=== PATIENT | female | born 1960 | race Caucasian/White ===

== ENCOUNTER → 2016-09-14 | Outpatient (CLI) | payer BC ==
--- NOTE | 2016-09-14 16:25 | RAD ---
Examination: MRI of the right ankle without contrast HISTORY History of medial ankle pain, swelling for 2 months, history of ankle fracture. COMPARISON None available. TECHNIQUE Multiplanar multisequence MR imaging of the right ankle was performed without contrast Findings ; The attachment of the Achilles tendon to the calcaneus grossly appears intact. The attachment of the plantar fascia to the inferior aspect of the calcaneus grossly appears intact. The alignment of the tarsal bones grossly appears unremarkable. The visualized Lisfranc ligament appears intact. The anterior tibiofibular ligament, posterior tibiofibular ligament, anterior talofibular ligament, posterior talofibular ligament are intact. The visualized deep fibers of the deltoid ligament appears intact. There is mild increased signal identified in the anterior aspect of the superficial fibers of the deltoid ligament. The tibial spring component of the the deltoid ligament is intact. There is small amount of fluid identified surrounding the posterior tibialis tendon, flexor digitorum tendons likely mild tenosynovitis mild nonspecific a soft tissue edema identified just anterior to the medial malleolus. The peroneal tendons grossly appears intact. The anterior extensor compartment tendons grossly appears intact. Fat is present within the rotator interval per sinus tarsi. Small ankle joint effusion is identified. IMPRESSION Mild increased signal identified in the deltoid ligament region anteriorly likely sprain or subtle partial tearing of the superficial fibers of the deltoid ligament. There is a small amount of fluid identified surrounding the posterior tibialis tendon and the flexor digitorum tendon likely mild tenosynovitis. Electronically signed by: Nico Elizondo (Sep 14, 2016 16:23:19)
== END | disposition home or self-care (01) ==
LOC: MRI 14:38
PROVIDERS: ATTEND Nurse Practitioner Gerontology
DX: M25.571 Pain in right ankle and joints of right foot (principal); M25.471 Effusion, right ankle
CPT/HCPCS: 73721

== ENCOUNTER 2017-01-22 16:06 | Inpatient (IN) | payer BC ==
[~2017-01-22] VITALS: Ht 167.6 cm; Wt 97.5 kg
[2017-01-22 16:51] VITALS: BP 130/73
[2017-01-22] MEDS ORDERED: OMEP40CA5 PO (16:55)
[2017-01-22] MEDS ORDERED: PSEU120T9 PO (16:55)
[2017-01-22] MEDS ORDERED: LORA1TAB47 PO (16:55)
[2017-01-22] MEDS ORDERED: MONT10TA9 PO (16:55)
[2017-01-22] MEDS ORDERED: ZOLPIDEM 5 MG TABLET. PO PRN (17:15)
[2017-01-22] MEDS ORDERED: fentaNYL PF VIAL 100 MCG/2 ML VIAL IV PRN (17:15)
[2017-01-22 19:00] VITALS: BP 120/73
[2017-01-22 19:11] LABS: BASO % 0 % (0-3); EOS % 5 % (0-3); HEMATOCRIT 36.6 % (36.0-47.0); HEMOGLOBIN 12.2 g/dL (12.0-15.5); LYMPH # 2.6 x10^3/uL (1.0-4.8); LYMPH % 32 % (24-48); MEAN CORPUSCULAR HEMOGLOBIN 30 pg (25-35); MEAN CORPUSCULAR HGB CONC 33 g/dL (31-37); MEAN CORPUSCULAR VOLUME 89 fL (79-100); MONO % 8 % (0-9); NEUT % 55 % (31-73); PLATELET COUNT 308 x10^3/uL (140-400); RED CELL DISTRIBUTION WIDTH 14.3 % (11.5-14.5); WHITE BLOOD COUNT 8.1 x10^3/uL (4.0-11.0)
[2017-01-22 19:22] LABS: CREATININE 0.8 mg/dL (0.6-1.0); GFR 74.2
--- NOTE | 2017-01-22 19:31 | EKG ---
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
[2017-01-22] MEDS ORDERED: IOHEXOL 300 MG/ML 75 ML VIAL IV ONE (19:45)
--- NOTE | 2017-01-22 21:52 | RAD ---
CTA OF THE CHEST WITH AND WITHOUT CONTRAST Clinical indications: Shortness of air. Replacement last month. Technique: Noncontrast axial localizer was performed. After IV infusion of 75 cc of Omnipaque 300, helical CT scanning of the chest was performed using the CT pulmonary embolism protocol. A coronal MIP reconstruction was generated. PQRS compliance Statement One or more of the following individualized dose reduction techniques were utilized for this study: 1. Automated exposure control 2. Adjustment of the mA and/or kV according to patient size 3. Use of iterative reconstruction technique Comparison: None available. Findings: No pulmonary embolism is evident. No focal aneurysmal dilatation or dissection of the thoracic aorta is seen. The heart size is normal and no pericardial effusion is seen. No enlarged thoracic lymphadenopathy is seen. No lung infiltrate or lung mass or pleural effusion or pneumothorax is seen. The proximal bronchial tree is patent. No adrenal mass is evident. No osteolytic process is seen. IMPRESSION: No pulmonary embolism. No acute lung infiltrate. Electronically signed by: Johnnie Mendoza MD (01/22/2017 9:48 PM) [facility]
[2017-01-22] MEDS: PSEUDOEPHEDRINE ER 120 MG TABLET.ER. PO SCH (21:54)
[2017-01-22 23:00] VITALS: BP 120/69
[2017-01-23 03:00] VITALS: BP 127/83
[2017-01-23 07:00] VITALS: BP 118/73
[2017-01-23] MEDS ORDERED: PANTOPRAZOLE 40 MG TABLET.DR. PO SCH (07:30)
[2017-01-23] MEDS: PANTOPRAZOLE 40 MG TABLET.DR. PO SCH (07:46)
[2017-01-23] MEDS: ASPIRIN CHEWABLE 81 MG TABLET. PO SCH (07:46)
--- NOTE | 2017-01-23 08:58 | RAD ---
INDICATION: Abdominal pain. Shortness of air. COMPARISON: None. TECHNIQUE: Grayscale and color ultrasound images obtained through the abdomen. FINDINGS: Aorta/IVC: Partially visualized without gross aneurysm. Pancreas: Visualized portions unremarkable. Liver: Echotexture within normal limits. Gallbladder: No definite stones or wall thickening. Common Bile Duct: Not dilated. Right Kidney: No hydronephrosis. Left Kidney: No hydronephrosis. Spleen: Unremarkable. IMPRESSION: No bile duct dilation or hydronephrosis.
[2017-01-23] MEDS ORDERED: ASA/APAP/CAFFEINE 250/250/65MG TABLET. PO PRN (10:00)
[2017-01-23] MEDS ORDERED: ACETAMINOPHEN 325 MG TABLET. PO PRN ×2 (10:00)
--- NOTE | 2017-01-23 10:08 | PDOC1 ---
History and Physical Date of Admission Date of Admission 01/22/17 Identification/Chief Complaint Chief Complaint Chest pain and shortness of breath Problems: Source Source: Chart review, Patient History of Present Illness History of Present Illness Patient presented to the office complaining of chest pain for the last 2 days along with the increasing shortness of breath patient had a right knee replacement about a month and a half ago she has been under a lot of stress and most recently she had felt very short of breath and have been having chest pain she has been evaluated in the past for similar and it was GI pain and epigastric area and the abdominal ultrasound was ordered she was also started on PPI in the office she was given GI cocktail with no improvement in her pain which was in the left upper quadrant area she was given breathing treatment and she did not feel that that helped her blood thinner her shortness of breath her oximetry was 100% her chest x-ray was negative but due to the persistent shortness of breasts subjective feeling of shortness of breath and chest pain she was admitted for further evaluation and treatment Past Medical History Cardiovascular: HTN GI: GERD, Gastritis Rheumatologic: Other (osteoarthritis and back pain) Family History Family History: No Significant Social History ALCOHOL: rare Drugs: None Current Medications Current Medications Current Medications Medications (Trade) Dose Ordered Sig/Angella Start Time Stop Time Status Last Admin Dose Admin Acetaminophen (Tylenol) 325 mg PRN Q6HRS PRN 01/23/17 10:00 Acetaminophen/ Aspirin/Caffeine (Excedrin Migraine) 1 tab PRN Q6HRS PRN 01/23/17 10:00 Aspirin (Children'S Aspirin) 81 mg DAILYWBKFT 01/23/17 08:00 01/23/17 07:46 81 MG Enoxaparin Sodium (Lovenox 100mg Syringe) 100 mg 1X ONCE 01/22/17 17:15 01/22/17 17:31 DC 01/22/17 17:45 100 MG Fentanyl Citrate (Fentanyl 2ml Vial) 50 mcg PRN Q4HRS PRN 01/22/17 17:15 Iohexol (Omnipaque 300 Mg/ml) 75 ml 1X ONCE 01/22/17 19:45 01/22/17 19:46 DC 01/22/17 19:45 75 ML Montelukast Sodium (Singulair) 10 mg DAILYBFRLUN 01/23/17 11:30 Pantoprazole Sodium (Protonix) 40 mg DAILYAC 01/23/17 07:30 01/23/17 07:30 DC Pseudoephedrine HCl (Sudafed 12-Hour) 120 mg HS 01/22/17 21:00 01/22/17 21:54 120 MG Zolpidem Tartrate (Ambien) 5 mg PRN QHS PRN 01/22/17 17:15 Allergies Allergies Allergies Coded Allergies Type Severity Reaction Last Updated Verified morphine Allergy Mild Nausea 01/22/17 Yes oxycodone Allergy Mild Nausea 01/22/17 Yes ROS Review of System CONSTITUTIONAL: No fever or chills EYES: No recent changes SKIN: No rash or itching CARDIOVASCULAR: See history of present illness RESPIRATORY: See history of present illness GASTROINTESTINAL: No nausea, vomiting or abdominal pain NEUROLOGICAL: No headaches or weakness ENDOCRINE: No cold or heat intolerance GENITOURINARY: No urgency or frequency of urination MUSCULOSKELETAL: No back pain or joint pain LYMPHATICS: No enlarged lymph nodes PSYCHIATRIC: No anxiety or depression Physical Exam Physical Exam GEN.: No apparent distress. Alert and oriented. HEENT: Head is normocephalic, atraumatic NECK: Supple. LUNGS: Clear to auscultation. HEART: RRR, S1, S2 present. Peripheral pulses intact ABDOMEN: Soft, nontender. Positive bowel sounds. EXTREMITIES: Without any cyanosis. NEUROLOGIC: Normal speech, normal tone PSYCHIATRIC: Normal affect, normal mood. SKIN: No ulcerations Vitals Vitals Vital Signs Date Time Temp Pulse Resp B/P (MAP) Pulse Ox O2 Delivery O2 Flow Rate FiO2 01/23/17 07:00 98.2 92 18 118/73 (88) 97 Room Air 98.2 Labs Labs Laboratory Tests Test 01/22/17 18:55 01/23/17 04:05 White Blood Count 8.1 x10^3/uL (4.0-11.0) Red Blood Count 4.10 x10^6/uL (3.50-5.40) Hemoglobin 12.2 g/dL (12.0-15.5) Hematocrit 36.6 % (36.0-47.0) Mean Corpuscular Volume 89 fL (79-100) Mean Corpuscular Hemoglobin 30 pg (25-35) Mean Corpuscular Hemoglobin Concent 33 g/dL (31-37) Red Cell Distribution Width 14.3 % (11.5-14.5) Platelet Count 308 x10^3/uL (140-400) Neutrophils (%) (Auto) 55 % (31-73) Lymphocytes (%) (Auto) 32 % (24-48) Monocytes (%) (Auto) 8 % (0-9) Eosinophils (%) (Auto) 5 % (0-3) Basophils (%) (Auto) 0 % (0-3) Neutrophils # (Auto) 4.4 x10^3uL (1.8-7.7) Lymphocytes # (Auto) 2.6 x10^3/uL (1.0-4.8) Monocytes # (Auto) 0.7 x10^3/uL (0.0-1.1) Eosinophils # (Auto) 0.4 x10^3/uL (0.0-0.7) Basophils # (Auto) 0.0 x10^3/uL (0.0-0.2) D-Dimer (Betty) 1.89 ug/mlFEU (0.00-0.50) Creatinine 0.8 mg/dL (0.6-1.0) Estimated GFR (Cockcroft-Gault) 74.2 Thyroid Stimulating Hormone (TSH) 8.515 uIU/mL (0.358-3.74) Troponin I Quantitative < 0.017 ng/mL (0.000-0.055) Laboratory Tests Test 01/22/17 18:55 01/23/17 04:05 White Blood Count 8.1 x10^3/uL (4.0-11.0) Red Blood Count 4.10 x10^6/uL (3.50-5.40) Hemoglobin 12.2 g/dL (12.0-15.5) Hematocrit 36.6 % (36.0-47.0) Mean Corpuscular Volume 89 fL (79-100) Mean Corpuscular Hemoglobin 30 pg (25-35) Mean Corpuscular Hemoglobin Concent 33 g/dL (31-37) Red Cell Distribution Width 14.3 % (11.5-14.5) Platelet Count 308 x10^3/uL (140-400) Neutrophils (%) (Auto) 55 % (31-73) Lymphocytes (%) (Auto) 32 % (24-48) Monocytes (%) (Auto) 8 % (0-9) Eosinophils (%) (Auto) 5 % (0-3) Basophils (%) (Auto) 0 % (0-3) Neutrophils # (Auto) 4.4 x10^3uL (1.8-7.7) Lymphocytes # (Auto) 2.6 x10^3/uL (1.0-4.8) Monocytes # (Auto) 0.7 x10^3/uL (0.0-1.1) Eosinophils # (Auto) 0.4 x10^3/uL (0.0-0.7) Basophils # (Auto) 0.0 x10^3/uL (0.0-0.2) D-Dimer (Betty) 1.89 ug/mlFEU (0.00-0.50) Creatinine 0.8 mg/dL (0.6-1.0) Estimated GFR (Cockcroft-Gault) 74.2 Thyroid Stimulating Hormone (TSH) 8.515 uIU/mL (0.358-3.74) Troponin I Quantitative < 0.017 ng/mL (0.000-0.055) VTE Prophylaxis Ordered VTE Prophylaxis Devices: Yes VTE Pharmacological Prophylaxi: No Assessment/Plan Assessment/Plan 1- chest pain is atypical but persistent patient is admitted serial cardiac enzymes will obtain a CT of the chest to rule out pulmonary embolus 2-gastritis and gastroesophageal reflux disease LAZARUS MEJIA MD Jan 23, 2017 10:08
[2017-01-23 10:18] LABS: BILIRUBIN,URINE NEGATIVE (NEG); GLUCOSE,URINE NEGATIVE (NEG); NITRITE,URINE NEGATIVE (NEG); PROTEIN,URINE NEGATIVE (NEG-TRACE); UROBILINOGEN,URINE 0.2 mg/dL (0.2 mg/dL)
[2017-01-23 10:39] LABS: BACTERIA,URINE 0 /HPF (0-FEW); RBC,URINE 0 /HPF (0-2); SQUAMOUS EPITHELIAL CELL,UR FEW /LPF
--- NOTE | 2017-01-23 10:56 | PDOC2 ---
CARDIAC CONSULT DATE OF CONSULT Date of Consult DATE: 01/23/17 TIME: 10:53 REASON FOR CONSULT Reason for Consult: Chest Pain REFERRING PHYSICIAN Referring Physician: Dr. Helton SOURCE Source: Chart review, Patient HISTORY OF PRESENT ILLNESS HISTORY OF PRESENT ILLNESS This is a 56 yo female who presented as a direct admit secondary to LUQ pressure. "Can't get deep breath" due to the pressure. Has been occurring intermittent over the last 30 years. Seems to have worsened over the years with more frequent "flare ups." Feels that it is related to GERD. Had EGD approximately 14 years ago. Has been on Nexium for some time, but has recently been ineffective. Dairy/caffeine seems to precipitate/worsen the pain. Pain seems to be improved by applying pressure directly to the LUQ. Occasionally, she will get a sharp pain in her mid-epigastric region that radiated upward. Feels as if she has a "gas bubble." Is resolved with drinking fluids. Denies any specific chest pain, palpitations, SOA, dizziness, diaphoresis, or nausea/ vomiting. No prior cardiac history or previous cardiac workup. D-dimer elevated ; CTA negative for PE. Does additionally have a h/o hypothyroidism, which she was previously on replacement therapy, but has not required replace in approximately 5 years. PAST MEDICAL HISTORY Cardiovascular: No pertinent hx Pulmonary: No pertinent hx GI: GERD Hepatobiliary: No pertinent hx Psych: No pertinent hx Musculoskeletal: Osteoarthritis Rheumatologic: No pertinent hx Infectious disease: No pertinent hx ENT: No pertinent hx Renal/: No pertinent hx Endocrine: No pertinent hx Dermatology: Melanoma PAST SURGICAL HISTORY Past Surgical History: Total knee replacement (bilateral ), Tonsillectomy, Other (back sx, skin CA removal) FAMILY HISTORY Family History: Cancer (lung-father ), Hypertension, Stroke (mother ) SOCIAL HISTORY Smoke: No ALCOHOL: none Drugs: None Lives: with Family CURRENT MEDICATIONS CURRENT MEDICATIONS Current Medications Medications (Trade) Dose Ordered Sig/Angella Route PRN Reason Start Time Stop Time Status Last Admin Dose Admin Enoxaparin Sodium (Lovenox 100mg Syringe) 100 mg 1X ONCE SQ 01/22/17 17:15 01/22/17 17:31 DC 01/22/17 17:45 Aspirin (Children'S Aspirin) 81 mg DAILYWBKFT PO 01/23/17 08:00 01/23/17 07:46 Pantoprazole Sodium (Protonix) 40 mg DAILYAC PO 01/23/17 07:30 01/23/17 07:46 Pseudoephedrine HCl (Sudafed 12-Hour) 120 mg HS PO 01/22/17 21:00 01/22/17 21:54 Iohexol (Omnipaque 300 Mg/ml) 75 ml 1X ONCE IV 01/22/17 19:45 01/22/17 19:46 DC 01/22/17 19:45 Acetaminophen/ Aspirin/Caffeine (Excedrin Migraine) 1 tab PRN Q6HRS PRN PO MIGRAINE HEADACHE 01/23/17 10:00 01/23/17 10:18 ALLERGIES ALLERGIES: Coded Allergies: morphine (Verified Allergy, Mild, Nausea, 01/22/17) oxycodone (Verified Allergy, Mild, Nausea, 01/22/17) ROS Review of System 14 point ROS conducted with pertinent positives noted above in HPI. PHYSICAL EXAM General: Alert, Oriented X3, Cooperative, No acute distress HEENT: Atraumatic, Mucous membr. moist/pink Lungs: Clear to auscultation, Normal air movement Heart: Regular rate, Normal S1, Normal S2, No murmurs Abdomen: Soft, Other (mild LUQ tenderness ) Extremities: No edema, Normal pulses Skin: No significant lesion Neuro: Normal speech, Sensation intact Psych/Mental Status: Mental status NL, Mood NL MUSCULOSKELETAL: Osteoarthritic changes both hands VITALS VITALS Vital Signs Date Time Temp Pulse Resp B/P (MAP) Pulse Ox O2 Delivery O2 Flow Rate FiO2 01/23/17 07:00 98.2 92 18 118/73 (88) 97 Room Air 98.2 LABS Lab: Laboratory Tests Test 01/22/17 18:55 01/23/17 04:05 01/23/17 07:20 White Blood Count 8.1 x10^3/uL (4.0-11.0) Red Blood Count 4.10 x10^6/uL (3.50-5.40) Hemoglobin 12.2 g/dL (12.0-15.5) Hematocrit 36.6 % (36.0-47.0) Mean Corpuscular Volume 89 fL (79-100) Mean Corpuscular Hemoglobin 30 pg (25-35) Mean Corpuscular Hemoglobin Concent 33 g/dL (31-37) Red Cell Distribution Width 14.3 % (11.5-14.5) Platelet Count 308 x10^3/uL (140-400) Neutrophils (%) (Auto) 55 % (31-73) Lymphocytes (%) (Auto) 32 % (24-48) Monocytes (%) (Auto) 8 % (0-9) Eosinophils (%) (Auto) 5 % (0-3) Basophils (%) (Auto) 0 % (0-3) Neutrophils # (Auto) 4.4 x10^3uL (1.8-7.7) Lymphocytes # (Auto) 2.6 x10^3/uL (1.0-4.8) Monocytes # (Auto) 0.7 x10^3/uL (0.0-1.1) Eosinophils # (Auto) 0.4 x10^3/uL (0.0-0.7) Basophils # (Auto) 0.0 x10^3/uL (0.0-0.2) D-Dimer (Betty) 1.89 ug/mlFEU (0.00-0.50) Creatinine 0.8 mg/dL (0.6-1.0) Estimated GFR (Cockcroft-Gault) 74.2 Thyroid Stimulating Hormone (TSH) 8.515 uIU/mL (0.358-3.74) Troponin I Quantitative < 0.017 ng/mL (0.000-0.055) Urine Collection Type Unknown Urine Color Yellow Urine Clarity Clear Urine pH 6.0 Urine Specific [place] >=1.030 Urine Protein Negative mg/dL (NEG-TRACE) Urine Glucose (UA) Negative mg/dL (NEG) Urine Ketones (Stick) Negative mg/dL (NEG) Urine Blood Negative (NEG) Urine Nitrite Negative (NEG) Urine Bilirubin Negative (NEG) Urine Urobilinogen Dipstick 0.2 mg/dL (0.2 mg/dL) Urine Leukocyte Esterase Small (NEG) Urine RBC 0 /HPF (0-2) Urine WBC 5-10 /HPF (0-4) Urine Squamous Epithelial Cells Few /LPF Urine Bacteria 0 /HPF (0-FEW) ASSESSMENT/PLAN ASSESSMENT/PLAN 1. Chest pain, atypical. Initial trop negative. EKG without acute ischemic changes 2. Left upper quadrant pain; GI consulted 3. GERD; on PPI 4. Hypothyroidism; TSH 8.515. Per PCP Recommendations Trend troponin. check lipids. Echo pending, if WNL may discharge from a CV standpoint Further workup of epigastric pain per GI. Problems: KIERAN PRADO APRN Jan 23, 2017 10:56
[2017-01-23 11:00] VITALS: BP 119/72
[2017-01-23] MEDS: MONTELUKAST SODIUM 10 MG TABLET. PO SCH (11:56)
--- NOTE | 2017-01-23 13:12 | PDOC2 ---
GI CONSULT Reason For Consult: Epigastric pain HPI: HPI: 56 y/o female who has an interesting history. Tells me since 30 years ago has had intermittent shortness of breath and epigastric/LUQ pressure. Seemed to have yearly exacerbations, now more frequent and worse. Long ago was given breathing treatments, eventually tried on GERD medications which helped. Had an EGD ~15 years ago and was told she had GERD, over the years hiatal hernia also suggested. She has taken Tums and Nexium intermittently which helped breathing. SOA and upper abd pressure occur randomly, although generally feels worse after eating. Occasionally has sharp pain from epigastrium radiating to chest; this is improved w/ drinking water. Also describes more recent onset of burping, occasional reflux, and "gurgling." Restarted Nexium 2-3 weeks ago; unfortunately, no improvement in SOA this time. Notes worse w/ activity and associated w/ significant fatigue, some trouble sleeping once or twice. More headaches as well. Recent right knee replacement, was on hydrocodone and ASA. No previous colonoscopy. With use of Tums, has noted a bit of diarrhea; with increased wiping has noted scant blood on toilet tissue. 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 Labs: elevated D-dimer (1.89) and TSH (8.5). CTA w/o PE, abd US unrevealing. Cardiology has seen; troponin was normal and EKG was w/o ischemic changes. Awaiting echocardiogram results. PMH: PMH: asthma, allergic rhinitis, GERD, OA, melanoma (on leg)/removal, bilateral total knee replacements (last in 12/2016, right), back surgery, tonsillectomy, C- section x 2, septoplasty FH: Family History: No pertinent hx Social History: Smoke: No ALCOHOL: rare Drugs: None ROS: GEN: +fatigue HEENT: Denies blurred vision, sore throat CV: +chest pain RESP: +shortness of air GI: Per HPI : Denies hematuria, dysuria ENDO: Denies weight changes NEURO: Denies confusion, dizziness MSK: +knee pain (recent surgery) SKIN: Denies jaundice, pruritus Vitals: Vitals: Vital Signs Date Time Temp Pulse Resp B/P (MAP) Pulse Ox O2 Delivery O2 Flow Rate FiO2 01/23/17 07:00 98.2 92 18 118/73 (88) 97 Room Air 98.2 Labs: Labs: Laboratory Tests Test 01/22/17 18:55 01/23/17 04:05 01/23/17 07:20 White Blood Count 8.1 x10^3/uL (4.0-11.0) Red Blood Count 4.10 x10^6/uL (3.50-5.40) Hemoglobin 12.2 g/dL (12.0-15.5) Hematocrit 36.6 % (36.0-47.0) Mean Corpuscular Volume 89 fL (79-100) Mean Corpuscular Hemoglobin 30 pg (25-35) Mean Corpuscular Hemoglobin Concent 33 g/dL (31-37) Red Cell Distribution Width 14.3 % (11.5-14.5) Platelet Count 308 x10^3/uL (140-400) Neutrophils (%) (Auto) 55 % (31-73) Lymphocytes (%) (Auto) 32 % (24-48) Monocytes (%) (Auto) 8 % (0-9) Eosinophils (%) (Auto) 5 % (0-3) Basophils (%) (Auto) 0 % (0-3) Neutrophils # (Auto) 4.4 x10^3uL (1.8-7.7) Lymphocytes # (Auto) 2.6 x10^3/uL (1.0-4.8) Monocytes # (Auto) 0.7 x10^3/uL (0.0-1.1) Eosinophils # (Auto) 0.4 x10^3/uL (0.0-0.7) Basophils # (Auto) 0.0 x10^3/uL (0.0-0.2) D-Dimer (Betty) 1.89 ug/mlFEU (0.00-0.50) Creatinine 0.8 mg/dL (0.6-1.0) Estimated GFR (Cockcroft-Gault) 74.2 Thyroid Stimulating Hormone (TSH) 8.515 uIU/mL (0.358-3.74) Troponin I Quantitative < 0.017 ng/mL (0.000-0.055) Urine Collection Type Unknown Urine Color Yellow Urine Clarity Clear Urine pH 6.0 Urine Specific [place] >=1.030 Urine Protein Negative mg/dL (NEG-TRACE) Urine Glucose (UA) Negative mg/dL (NEG) Urine Ketones (Stick) Negative mg/dL (NEG) Urine Blood Negative (NEG) Urine Nitrite Negative (NEG) Urine Bilirubin Negative (NEG) Urine Urobilinogen Dipstick 0.2 mg/dL (0.2 mg/dL) Urine Leukocyte Esterase Small (NEG) Urine RBC 0 /HPF (0-2) Urine WBC 5-10 /HPF (0-4) Urine Squamous Epithelial Cells Few /LPF Urine Bacteria 0 /HPF (0-FEW) Allergies: Coded Allergies: morphine (Verified Allergy, Mild, Nausea, 01/22/17) oxycodone (Verified Allergy, Mild, Nausea, 01/22/17) Medications: Current Medications Medications (Trade) Dose Ordered Sig/Angella Route PRN Reason Start Time Stop Time Status Last Admin Dose Admin Enoxaparin Sodium (Lovenox 100mg Syringe) 100 mg 1X ONCE SQ 01/22/17 17:15 01/22/17 17:31 DC 01/22/17 17:45 Aspirin (Children'S Aspirin) 81 mg DAILYWBKFT PO 01/23/17 08:00 01/23/17 07:46 Pantoprazole Sodium (Protonix) 40 mg DAILYAC PO 01/23/17 07:30 01/23/17 07:46 Montelukast Sodium (Singulair) 10 mg DAILYBFRLUN PO 01/23/17 11:30 01/23/17 11:56 Pseudoephedrine HCl (Sudafed 12-Hour) 120 mg HS PO 01/22/17 21:00 01/22/17 21:54 Iohexol (Omnipaque 300 Mg/ml) 75 ml 1X ONCE IV 01/22/17 19:45 01/22/17 19:46 DC 01/22/17 19:45 Acetaminophen/ Aspirin/Caffeine (Excedrin Migraine) 1 tab PRN Q6HRS PRN PO MIGRAINE HEADACHE 01/23/17 10:00 01/23/17 10:18 Imaging: Imaging: CXR IMPRESSION: No acute finding. No significant change. Abd US FINDINGS: Aorta/IVC: Partially visualized without gross aneurysm. Pancreas: Visualized portions unremarkable. Liver: Echotexture within normal limits. Gallbladder: No definite stones or wall thickening. Common Bile Duct: Not dilated. Right Kidney: No hydronephrosis. Left Kidney: No hydronephrosis. Spleen: Unremarkable. IMPRESSION: No bile duct dilation or hydronephrosis. Chest CTA Findings: No pulmonary embolism is evident. No focal aneurysmal dilatation or dissection of the thoracic aorta is seen. The heart size is normal and no pericardial effusion is seen. No enlarged thoracic lymphadenopathy is seen. No lung infiltrate or lung mass or pleural effusion or pneumothorax is seen. The proximal bronchial tree is patent. No adrenal mass is evident. No osteolytic process is seen. IMPRESSION: No pulmonary embolism. No acute lung infiltrate. Echocardiogram PENDING PE: GEN: leaning forward in chair HEENT: Atraumatic, PERRLA LUNGS: tachypneic, clear HEART: RRR ABD: NABS, S/ND/NT EXTREMITY: trace BLE edema SKIN: No rashes, no jaundice NEURO/PSYCH: A & O 3 A/P: A/P: Recurrent SOA and epigastric/LUQ discomfort, fatigue -30 year history, has been more frequent -Tums and Nexium have improved symptoms over the years, recently have provided no relief -elevated TSH and D-dimer, CTA chest unrevealing along w/ abd US -troponin and EKG normal, await echo results GERD -EGD ~15 years ago -occasional reflux lately, burping -has been on ASA BID w/ recent knee replacement CRC screen -no previous colonoscopy Diarrhea, hematochezia -diarrhea attributed to Tums -scant blood on toilet tissue attributed to frequent wiping -- D/w Dr. Carlson. Await echocardiogram. Agree w/ PPI. Will check UGI to r/o hernia (?intermittent volvulus). Eventually needs EGD and colonoscopy, could be done as outpt. SOA > pain, will wait on PIPIDA for now (?atypical GB symptoms). HERNESTO MTZ Jan 23, 2017 13:12
[2017-01-23 15:00] VITALS: BP 110/62
[2017-01-23 19:00] VITALS: BP 128/81
--- NOTE | 2017-01-23 19:52 | CARD ---
APPROVED REPORT EXAM: Two-dimensional and M-mode echocardiogram with Doppler and color Doppler. Other Information Quality : GoodHR: 77bpm Rhythm : NSR INDICATION Dyspnea 2D DIMENSIONS Left Atrium(2D)3.7 (1.6-4.0cm)IVSd1.1 (0.7-1.1cm) Aortic Root(2D)3.0 (2.0-3.7cm)LVDd5.0 (3.9-5.9cm) LVOT Diameter2.0 (1.8-2.4cm)PWd1.0 (0.7-1.1cm) LVDs3.2 (2.5-4.0cm)FS (%) 36.5 % SV76.9 mlLVEF(%)66.0 (>50%) Aortic Valve AoV Peak Alvaro.144.8cm/sAoV VTI27.9cm AO Peak GR.8.4mmHgLVOT Peak Alvaro.108.5cm/s LVOT VTI 22.88cmAO Mean GR.5mmHg ASHLEIGH (VMAX)2.11lk7WND (VTI)2.70cm2 Mitral Valve MV E Qxbihpuo65.0cm/sMV E Peak Gr.96mmHg MV DECEL [id number] A Euixuxaw97.0cm/s MV FFY64ueE/A Ratio0.9 MVA (PHT)3.28cm2 TDI E/Lateral E'4.5E/Medial E'7.9 Pulmonary Valve PV Peak Hjpmxxyz93.6cm/sPV Peak Grad.3mmHg Tricuspid Valve TR P. Muwljhjf283td/sRAP QFGMTLLA2buOp TR Peak Gr.13mmHg Pulmonary Vein S1 Dkdxyxkd33.3cm/sD2 Qowqiwox69.5cm/s LEFT VENTRICLE The left ventricle is normal size. There is normal left ventricular wall thickness. Left ventricle sy stolic function is normal. The Ejection Fraction is 60-65%. Transmitral Doppler flow pattern is abnor mal. RIGHT VENTRICLE The right ventricle is normal size. There is normal right ventricular wall thickness. The right ventr icular systolic function is normal. ATRIA The left atrium size is normal. The right atrium size is normal. The interatrial septum is intact wit h no evidence for an atrial septal defect or patent foramen ovale as noted on 2-D or Doppler imaging. AORTIC VALVE The aortic valve is normal in structure and function. Doppler and Color Flow revealed no significant aortic regurgitation. There is no significant aortic valvular stenosis. MITRAL VALVE The mitral valve is normal in structure and function. There is no mitral valve stenosis. Doppler and Color-flow revealed mild mitral regurgitation. TRICUSPID VALVE The tricuspid valve is normal in structure and function. Doppler and Color Flow revealed trace tricus pid regurgitation. The PA pressure was estimated at 16 mmHg. There is no tricuspid valve stenosis. PULMONIC VALVE The pulmonary valve is normal in structure and function. Doppler and Color Flow revealed trace pulmon ic valvular regurgitation. There is no pulmonic valvular stenosis. GREAT VESSELS The aortic root is normal in size. Normal pulmonary venous flow (Doppler). The IVC is normal in size and collapses >50% with inspiration. PERICARDIAL EFFUSION There is no evidence of significant pericardial effusion. Critical Notification Critical Value: No <Conclusion> The left ventricle is normal size. There is normal left ventricular wall thickness. Left ventricle systolic function is normal. The Ejection Fraction is 60-65%. There is a Grade I diastolic dysfunction There is no evidence of significant pericardial effusion. There is thickening of the mitral valve leaflets. There is no mitral stenosis and a mild mitral regurgitation The left atrium is of a normal size.The aortic valve is tricuspid. There is no aortic stenosis or regurgitation The right ventricle is of a normal size with normal systolic function The pulmonary artery systolic pressure is normal. The pulmonic vakve is normal.
[2017-01-23] MEDS: PSEUDOEPHEDRINE ER 120 MG TABLET.ER. PO SCH (21:18)
[2017-01-23 23:00] VITALS: BP 134/71
--- NOTE | 2017-01-24 05:33 | ACF ---
Admission Forms Criteria CARDIOLOGY GRG Clinical Indications for Admission to Inpatient Care ( Place 'X' for any and all applicable criteria): Hospital admission is needed for appropriate care of the patient because of ANY ONE of the following (1): [ ] I. Hemodynamic instability as indicated by ALL of the following (1)(2)(3) (4)(5) [ ]a) Vital signs or other findings not as expected for chronic patient condition or baseline [ ]b) Instability indicated by ANY ONE of the following: [ ]i) Hypotension [ ]ii) Symptomatic Tachycardia unresponsive to treatment ( e.g., analgesia, fluids, sedation as indicated) [ ]iii) Inadequate perfusion indicated by ANY ONE of the following: [ ] 1) Lactic acidosis (> 2 mmol/L) [ ] 2) New abnormal capillary refill (> 3 seconds) [ ] 3) Reduced urine output [ ] 4) New altered mental status [ ]iv) Orthostatic vital sign changes unresponsive to treatment (e.g., fluids) [ ]v) IV inotropic or vasopressor medication required to maintain adequate blood pressure or perfusion [ ] II. Severe heart failure as indicated by ANY ONE of the following(17)(18) [ ]a) Respiratory distress [ ]b) Hypotension [ ]c) Anasarca (refractory to outpatient therapy) [ ]d) Cardiac arrhythmias of immediate concern [ ]e) Myocardial ischemia [ ] III. Cardiac arrhythmias or findings of immediate concern indicated by ANY ONE of the following (19)(20): [ ] a) Heart rhythms that are inherently dangerous or unstable indicated by ANY ONE of the following (21)(22)(23): [ ] i) Resuscitated ventricular fibrillation or cardiac arrest [ ] ii) Ventricular escape rhythm [ ] iii) Sustained ventricular tachycardia (30 seconds or more of ventricular rhythm at greater than 100 beats per minute) [ ] iv) Nonsustained ventricular tachycardia and ANY ONE of the following: [ ] 1) Suspected cardiac ischemia as cause or consequence of ventricular tachycardia [ ] 2) In setting of acute myocarditis [ ] b) Unstable cardiac conduction defects indicated by ANY ONE of the following(23)(24)(25) [ ] i) Type II second-degree atrioventricular block [ ]ii) Third-degree atrioventricular block [ ]iii) New-onset left bundle branch block with suspected myocardial ischemia [ ]c) Any heart rhythm and ANY ONE of the following (21)(22)(26)(27) (28) [ ] i) Continuous long-term ECG monitoring needed (e.g., initiation of drug requiring monitoring for more than 24 hours) [ ] ii) Patient has automatic implanted cardioverter defibrillator that is repeatedly firing, malfunctioning, or in need of immediate adjustment of settings beyond the scope of ambulatory or observation care [ ]d) Heart rhythms of concern due to ANY ONE of the following: [ ] i) Hypotension [ ] ii) Respiratory distress [ ] iii) Association with other significant symptoms (e.g., bradycardia with syncope or ongoing dizziness, supraventricular tachycardia with chest pain (14)(15)(17) [ ] IV. Monitoring for cardiac contusion beyond the scope of observation care needed [A](30)(31)(32) [ ] V. Surgical or device complication (e.g., valve replacement complication , pacemaker dysfunction) (35)(41)(44)(45)(46) [ ] . Inpatient palliative care needed. [B](49) Also use Inpatient Palliative Care Criteria [ ] VII. Nonbacterial thrombotic (marantic) endocarditis (36)(43)(47)(48) [X] VIII. Cardiology condition, symptom, or finding for which emergency and observation care has failed or are not considered appropriate. [ ] IX. Acute valvular disease requiring inpatient as indicated by ANY ONE of the following (41) [ ]a) Acute valvular regurgitation (42) [ ]b) Noninfectious valvulitis (43) [ ]c) Obstructive valve thrombosis [ ]d) Paravalvular leak [ ]e) Other significant valvular disorder remaining after emergency or observation level of care (as appropriate) [ ]X. Pericardial disease requiring inpatient treatment as indicated by ANY ONE of the following (33)(34)(35)(36)(37) [ ]a) Suspected tamponade (38)(39)(40) [ ]b) Hemopericardium [ ]c) Other significant pericardial disorder remaining after emergency or observation level of care (as appropriate) [ ] XI. Cardiac ischemia beyond scope of emergency and observation care. [ ] XII. Hypertension requiring inpatient treatment as indicated by ANY ONE of the following (6)(7)(8) [ ]a) SBP greater than 220 mm Hg or DBP greater than 120 mmHg despite treatment [ ]b) SBP greater than 140 mm Hg or DBP greater than 100 mm Hg with evidence of acute end organ damage as indicated by ANY ONE of the following [ ] i) Encephalopathy [ ] ii) Acute renal failure as indicated by new onset of ANY ONE of the following (9)(10)(11)(12)(13) [ ]1) 3-fold rise in serum creatinine from baseline [ ]2) Serum creatinine greater than 4 mg/dL ( 354 micromoles/L) with acute rise greater than 0.5 mg/dL (44.2 micromoles/L) [ ]3) Reduction of more than 75% in estimated glomerular filtration rate from baseline [ ]4) Estimated glomerular filtration rate less than 35 mL/min/1.73m2 (0.59 mL/sec/1.73m2) in child up to 18 years of age [ ]5) Cessation of urine output indicated by ALL of the following [ ]A. Adequate volume status [ ]B. Inadequate urine output as indicated by ANY ONE of the following [ ]a. Urine output less than 0.3 mL/kg/hr for 24 hours [ ]b. Anuria (urine output less than 0.1 mL/kg/hr) for 12 hours [ ] iii) Aortic dissection [ ] iv) Myocardial Ischemia [ ] v) Left ventricular heart failure [ ]vi) Retinal Hemorrhage [ ]vii) Other significant finding [ ]c) Hypertension in child requiring inpatient treatment as indicated by ALL of the following(14)(15)(16) [ ] i) Outpatient treatment not effective, not available, or not appropriate [ ]ii) SBP or DBP greater than 95th percentile for age [ ]iii) Evidence of acute end organ damage as indicated by ANY ONE of the following [ ]1) Altered mental status [ ]2) Acute renal failure as indicated by new onset of ANY ONE of the following(9)(10)(11)(12)(13) [ ]A. 3-fold rise in serum creatinine from baseline [ ]B. Serum creatinine greater than 4 mg/dL (354 micromoles/L) with acute rise greater than 0.5 mg/dL (44.2 micromoles/L) [ ]C. Reduction of more than 75% in estimated glomerular filtration rate from baseline [ ]D. Estimated glomerular filtration rate less than 35 mL/min/1.73m2 (0.59 mL/sec/1.73m2) in child up to 18 years of age [ ]E. Cessation of urine output indicated by ALL of the following [ ]a. Adequate volume status [ ]b. Inadequate urine output as indicated by ANY ONE of the following [ ]i) Urine output less than 0.3 mL/kg/hr for 24 hours [ ]ii) Anuria ( urine output less than 0.1 mL/kg/hr) for 12 hours [ ]3) Severe headache [ ]4) Visual disturbance [ ]5) Retinal hemorrhage [ ]6) Other significant finding [ ]XIII. Complications of transplanted heart indicated by ANY ONE of the following(61): [ ]a) Acute graft rejection requiring inpatient management (eg, intravenous immunosuppression)(62)(63) [ ]b) Acute graft heart failure indicated by ANY ONE of the following(64): [ ]i) Hemodynamic instability [ ]ii) Cardiac arrhythmias of immediate concern [ ]iii) Pulmonary edema that is very severe (eg, mechanical ventilation needed, imminent or likely, need for 100% oxygen to keep oxygen saturation above 90%) [ ]iv) Pulmonary edema that is persistent as indicated by ALL of the following: [ ]1) New need for oxygen therapy to keep oxygen saturation above 90% (or increased FiO2 need from baseline) [ ]2) Has not improved sufficiently with emergency department or observation care IV diuretics or other heart failure treatments[E] [ ]v) Altered mental status that is severe or persistent [ ]vi) Increased creatinine (new on laboratory test) with reduction of more than 50% in estimated glomerular filtration rate from baseline [ ]vii) Progressively (ongoing) rising creatinine (known from past laboratory test) with reduction of more than 25% in estimated glomerular filtration rate from baseline [ ]viii) Acute renal failure [ ]ix) Acute peripheral ischemia (eg, examination shows pulseless, cool, mottled, or cyanotic extremity) [ ]x) Pulmonary artery catheter monitoring needed [ ]xi) Other sign or symptom of heart failure requiring inpatient treatment (ie, too severe or not responsive to outpatient and observation care treatment) [ ]c) Infection requiring inpatient management (eg, Hemodynamic instability, need for intravenous antimicrobial treatment)(66)(67)(68)(69)(70) [ ]d) Cardiac allograft vasculopathy requiring inpatient management ( eg evidence of cardiac ischemia)(71) [ ]e) Other complication of transplanted heart (eg, stroke, severe pulmonary hypertension, severe valvular dysfunction) requiring inpatient management(72) The original [facility] content created by [facility] has been revised. The portions of the content which have been revised are identified through the use of italic text or in bold, and [facility] has neither reviewed nor approved the modified material. All other unmodified content is copyright [facility]. Please see references footnoted in the original [facility] edition 2016 Admission Criteria Met?: Yes CED SORIA Jan 24, 2017 05:33
[2017-01-24 06:03] LABS: HEMATOCRIT 35.9 % (36.0-47.0); HEMOGLOBIN 11.9 g/dL (12.0-15.5); RED BLOOD COUNT 3.98 x10^6/uL (3.50-5.40); RED CELL DISTRIBUTION WIDTH 14.6 % (11.5-14.5); WHITE BLOOD COUNT 5.9 x10^3/uL (4.0-11.0)
[2017-01-24 06:30] LABS: CALCIUM 8.6 mg/dL (8.5-10.1); CREATININE 0.8 mg/dL (0.6-1.0); GFR 74.2; POTASSIUM 4.4 mmol/L (3.5-5.1)
[2017-01-24 06:37] LABS: CHOLESTEROL/HDL RATIO 5.6
[2017-01-24 07:00] VITALS: BP 118/76
[2017-01-24] MEDS ORDERED: SIMETHICONE/SOD BICARB/CITRIC ACID PACKET. PO ONE (08:00)
[2017-01-24] MEDS ORDERED: BARIUM SULFATE 60% 355 ML SUSP PO ONE (08:00)
--- NOTE | 2017-01-24 08:57 | RAD ---
Indication shortness of breath. Abdominal pain. Upper GI examination was performed in double contrast fashion. 17 spot fluoroscopic images were obtained. Fluoroscopy time associated with the study was 1.9 minutes. Initiation of swallowing was normal. The esophagus appeared normal. The stomach appeared normal. The duodenal bulb appeared normal as did the visualized small bowel. IMPRESSION: Normal study
[2017-01-24] MEDS ORDERED: LEVOTHYROXINE 50 MCG TABLET PO SCH (09:00)
[2017-01-24] MEDS ORDERED: LEVO50TA PO (09:15)
[2017-01-24] MEDS ORDERED: ATOR10TA60 PO (09:15)
--- NOTE | 2017-01-24 09:18 | PDOC ---
SUBJECTIVE Subjective pain not completely gone but better, echo ok, UGI neg OBJECTIVE Vital Signs Vital Signs Date Time Temp Pulse Resp B/P (MAP) Pulse Ox O2 Delivery O2 Flow Rate FiO2 01/24/17 08:00 Room Air 01/23/17 23:00 98.0 67 18 134/71 (92) 100 Room Air 98.0 01/23/17 20:00 Room Air 01/23/17 19:00 97.7 77 18 128/81 (97) 92 Room Air 97.7 01/23/17 15:00 98.4 82 18 110/62 (78) 99 Room Air 98.4 01/23/17 11:00 97.7 68 18 119/72 (88) 100 Room Air 97.7 I & O Intake and Output 01/24/17 07:00 Intake Total 500 ml Output Total 550 ml Balance -50 ml Intake Oral 500 ml Output Urine Total 550 ml PHYSICAL EXAM Physical Exam lungs clear heart RRR abd soft and nonetender ext no edema ASSESSMENT/PLAN Assessment/Plan chest pain not cardiac echo ok, started levothyroxine, start statin for high cholestrol, continue PPI, f/u out pt for EGD and colono , consider gastric emptying study, home today Problems: COMMENT Lab Laboratory Tests Test 01/23/17 18:00 01/24/17 04:57 Troponin I Quantitative < 0.017 ng/mL (0.000-0.055) < 0.017 ng/mL (0.000-0.055) White Blood Count 5.9 x10^3/uL (4.0-11.0) Red Blood Count 3.98 x10^6/uL (3.50-5.40) Hemoglobin 11.9 g/dL (12.0-15.5) Hematocrit 35.9 % (36.0-47.0) Mean Corpuscular Volume 90 fL (79-100) Mean Corpuscular Hemoglobin 30 pg (25-35) Mean Corpuscular Hemoglobin Concent 33 g/dL (31-37) Red Cell Distribution Width 14.6 % (11.5-14.5) Platelet Count 277 x10^3/uL (140-400) Sodium Level 142 mmol/L (136-145) Potassium Level 4.4 mmol/L (3.5-5.1) Chloride Level 107 mmol/L (98-107) Carbon Dioxide Level 26 mmol/L (21-32) Anion Gap 9 (6-14) Blood Urea Nitrogen 17 mg/dL (7-20) Creatinine 0.8 mg/dL (0.6-1.0) Estimated GFR (Cockcroft-Gault) 74.2 Glucose Level 96 mg/dL (70-99) Calcium Level 8.6 mg/dL (8.5-10.1) Triglycerides Level 73 mg/dL (0-150) Cholesterol Level 209 mg/dL (0-200) LDL Cholesterol, Calculated 157 mg/dL (0-100) VLDL Cholesterol, Calculated 15 mg/dL (0-40) Non-HDL Cholesterol Calculated 172 mg/dL (0-129) HDL Cholesterol 37 mg/dL (40-60) Cholesterol/HDL Ratio 5.6 LAZARUS MEJIA MD Jan 24, 2017 09:18
--- NOTE | 2017-01-24 09:18 | PDOC3 ---
Discharge Summary* Date of Admission: Jan 22, 2017 Date of Discharge: Jan 24, 2017 Final Diagnosis 1. Chest pain, atypical. not cardiac 2. Left upper quadrant pain; 3. GERD; on PPI 4. Hypothyroidism; TSH 8.515. 5.hyperlipidemia CONSULTS GI, Cardiology Procedures echo, abd US, UGI, CT chest w contrast no PE Brief Hospital Course Ms. Brunson is a 56 old [sex] who presented with [ ] Disposition/Orders: D/C to Home CONDITION AT DISCHARGE: Improved Diet: Cardiac Scheduled Montelukast Sodium (Montelukast Sodium Tablet), 1 TAB PO DAILYBFRLUN, (Reported) Omeprazole (Omeprazole), 40 MG PO DAILY, (Reported) Pseudoephedrine Hcl (Sudafed 12-Hour), 120 MG PO HS, (Reported) Discontinued Medications Loratadine/Pseudoephedrine (Claritin-D 12 Hour Tablet), 1 EACH PO HS, (Reported) FOLLOW UP APPOINTMENT: F/U GI for EGD/colono out pt and possible gastric emptying study take thyroid med and cholestrol med, continue Nexuim F/U Dr Mejia 1-2 weeks Time Spent Total time spent with patient [] minutes for coordination of care, counseling, and education. LAZARUS MEJIA MD Jan 24, 2017 09:18
[2017-01-24 09:19] LABS: AMYLASE 29 U/L (25-115)
[2017-01-24 11:00] VITALS: BP 110/72
--- NOTE | 2017-01-24 11:29 | PDOC ---
Subjective: Subjective: Feeling better today. Some SOA but better. Slept well; in fact, thinks slept on side "wrong," has mostly left-sided pain now. Objective: Objective: RN called this morning - less SOA, more pain, ordered PIPIDA. Vital Signs: Vital Signs Date Time Temp Pulse Resp B/P (MAP) Pulse Ox O2 Delivery O2 Flow Rate FiO2 01/24/17 08:00 Room Air 01/24/17 07:00 97.8 86 18 118/76 (90) 99 97.8 Labs: Laboratory Tests Test 01/23/17 18:00 01/24/17 04:57 Troponin I Quantitative < 0.017 ng/mL < 0.017 ng/mL White Blood Count 5.9 x10^3/uL Red Blood Count 3.98 x10^6/uL Hemoglobin 11.9 g/dL Hematocrit 35.9 % Mean Corpuscular Volume 90 fL Mean Corpuscular Hemoglobin 30 pg Mean Corpuscular Hemoglobin Concent 33 g/dL Red Cell Distribution Width 14.6 % Platelet Count 277 x10^3/uL Sodium Level 142 mmol/L Potassium Level 4.4 mmol/L Chloride Level 107 mmol/L Carbon Dioxide Level 26 mmol/L Anion Gap 9 Blood Urea Nitrogen 17 mg/dL Creatinine 0.8 mg/dL Estimated GFR (Cockcroft-Gault) 74.2 Glucose Level 96 mg/dL Calcium Level 8.6 mg/dL Triglycerides Level 73 mg/dL Cholesterol Level 209 mg/dL LDL Cholesterol, Calculated 157 mg/dL VLDL Cholesterol, Calculated 15 mg/dL Non-HDL Cholesterol Calculated 172 mg/dL HDL Cholesterol 37 mg/dL Cholesterol/HDL Ratio 5.6 Amylase Level 29 U/L Lipase 110 U/L Imaging: UGI 01/24/17 IMPRESSION: Normal study. Echocardiogram 01/23/17 <Conclusion> The left ventricle is normal size. There is normal left ventricular wall thickness. Left ventricle systolic function is normal. The Ejection Fraction is 60-65%. There is a Grade I diastolic dysfunction There is no evidence of significant pericardial effusion. There is thickening of the mitral valve leaflets. There is no mitral stenosis and a mild mitral regurgitation The left atrium is of a normal size.The aortic valve is tricuspid. There is no aortic stenosis or regurgitation The right ventricle is of a normal size with normal systolic function The pulmonary artery systolic pressure is normal. The pulmonic vakve is normal. PE: GEN: NAD LUNGS: clear HEART: RRR ABD: not particularly tender, left rib discomfort? NEURO/PSYCH: A & O 3 A/P: Recurrent SOA and epigastric/LUQ discomfort, h/o GERD -30 year history improved w/ Tums and Nexium in the past but not recently -had cardiology eval -imaging including CTA, abd US, and UGI unrevealing -- PIPIDA today. Note DC plans - okay per GI. Can set up outpt EGD and screening colonoscopy. Continue PPI QD. HERNESTO MTZ Jan 24, 2017 11:29
[2017-01-24] MEDS ORDERED: SINCALIDE 1.95 MCG in IV NORMAL SALINE 50ML 30 ML IV ONE (14:00)
[2017-01-24] MEDS: PANTOPRAZOLE 40 MG TABLET.DR. PO SCH (14:39)
--- NOTE | 2017-01-24 14:57 | RAD ---
Indication epigastric pain. Hepatobiliary scan was performed. 5.5 mCi of technetium labeled Choletec was administered. 2 mcg of CCK was diluted in saline and administered over several minutes. Following the CCK infusion a gallbladder ejection fraction estimation was made. There is normal uptake of the radiopharmaceutical in the liver. Activity is seen early in the biliary system gallbladder and small bowel. Following the Kinevac administration the estimated gallbladder ejection fraction is only 11%. This is diminished. IMPRESSION: Patent cystic duct. Diminished gallbladder ejection fraction
[2017-01-24 15:00] VITALS: BP 125/78
[2017-01-24] MEDS: MONTELUKAST SODIUM 10 MG TABLET. PO SCH (15:27)
[2017-01-24] MEDS: ASPIRIN CHEWABLE 81 MG TABLET. PO SCH (15:27)
[2017-01-24] MEDS ORDERED: ATORVASTATIN CALCIUM 10 MG TABLET. PO SCH (21:00)
== END 2017-01-24 17:16 | disposition home or self-care (01) | DRG 313 ==
LOC: 5 NORTH 16:18
PROVIDERS: ADMIT Internal Medicine; ATTEND Internal Medicine
DX: R07.89 Other chest pain (principal); E03.9 Hypothyroidism, unspecified; I10 Essential (primary) hypertension; K21.9 Gastro-esophageal reflux disease without esophagitis; Z80.1 Family history of malignant neoplasm of trachea, bronchus and lung; Z82.3 Family history of stroke; Z82.49 Family history of ischemic heart disease and other diseases of the circulatory system; Z85.820 Personal history of malignant melanoma of skin; Z96.653 Presence of artificial knee joint, bilateral; M19.90 Unspecified osteoarthritis, unspecified site; Z88.5 Allergy status to narcotic agent; E78.5 Hyperlipidemia, unspecified; J45.909 Unspecified asthma, uncomplicated; K29.70 Gastritis, unspecified, without bleeding
CPT/HCPCS: 36415; 71275; 74246; 76700; 78226; 80048; 80061; 81001; 82150; 82565; 83690; 84443; 84484; 85027; 85379; 87086; 93005; 93306; 96374; 96375; A9537; J1650; J2805; Q9967

== ENCOUNTER 2017-02-04 06:21 | Day surgery (SDC) | payer BC ==
[~2017-02-04 06:21] MED LIST: ATOR10TA60 PO; LEVO50TA PO; LORA1TAB47 PO; MONT10TA9 PO; OMEP40CA5 PO; PSEU120T9 PO
[2017-02-04] MEDS ORDERED: HYDROmorphone 2 MG/ML VIAL IV PRN (07:00)
[2017-02-04] MEDS ORDERED: LIDOCAINE 1% 1 ML SYRINGE. ID PRN (07:00)
[2017-02-04] MEDS ORDERED: ONDANSETRON PF 4 MG/2 ML VIAL. IV PRN (07:00)
[2017-02-04] MEDS ORDERED: PROCHLORPERAZINE 10 MG/2 ML VIAL. IV PRN (07:00)
[2017-02-04] MEDS ORDERED: fentaNYL PF VIAL 100 MCG/2 ML VIAL IV PRN (07:00)
[2017-02-04] MEDS ORDERED: IV RINGERS,LACTATED 1000ML 1,000 ML IV SCH (07:00)
[2017-02-04] MEDS ORDERED: MORPHINE SULFATE 2 MG/ML DISP.SYRIN. IV PRN (07:00)
[2017-02-04] MEDS ORDERED: SURGICEL HEMOSTAT 4X8 EACH. ONE (07:15)
[2017-02-04] MEDS ORDERED: IOHEXOL 300 MG/ML 50 ML VIAL. ONE (07:15)
[2017-02-04] MEDS ORDERED: BUPIVACAINE MPF 0.25% 30 ML VIAL. ONE (07:15)
[2017-02-04] MEDS ORDERED: LIDOCAINE 2% PF Vial for OR 5 ML VIAL. ONE (07:34)
[2017-02-04] MEDS ORDERED: DEXAMETHASONE SOD PHOS 20 MG/5 ML VIAL. ONE (07:34)
[2017-02-04] MEDS ORDERED: PROPOFOL 20 ML IV ONE (07:34)
[2017-02-04] MEDS ORDERED: fentaNYL PF VIAL 100 MCG/2 ML VIAL ONE ×3 (07:34→09:41)
[2017-02-04] MEDS ORDERED: MIDAZOLAM HCL/PF 2 MG/2 ML VIAL. ONE (07:34)
[2017-02-04] MEDS ORDERED: ONDANSETRON PF 4 MG/2 ML VIAL. ONE (07:34)
[2017-02-04] MEDS ORDERED: DESFLURANE 61 TO 120 MINUTES IH ONE (07:34)
[2017-02-04] MEDS ORDERED: ROCURONIUM 100 MG/10 ML VIAL. ONE (07:36)
[2017-02-04] MEDS ORDERED: ESMOLOL 100 MG/10 ML VIAL. IV ONE (08:03)
[2017-02-04] MEDS ORDERED: NEOSTIGMINE 10 MG/10 ML VIAL. ONE (08:19)
[2017-02-04] MEDS ORDERED: GLYCOPYRROLATE 1 MG/5 ML VIAL. ONE (08:20)
--- NOTE | 2017-02-04 08:34 | PDOC4 ---
Operative Note Operative Note Date: 02/04/2017 Preoperative diagnosis: Biliary dyskinesia Postoperative diagnosis: Same Procedure: Laparoscopic cholecystectomy Surgeon: Mannie Dictation: Ms. Brunson is a 56-year-old female with complaints of right upper quadrant abdominal pain and postprandial nausea for the last month she had a HIDA scan which showed ejection fraction of only 11%. The procedure of laparoscopic cholecystectomy was explained to the patient in detail all risks benefits were also discussed including bleeding infection injury to intra- abdominal contents possibly necessitating further or open operations. The patient seemed understanding gave both verbal and written consent to have the procedure performed. The patient was taken to the operating room placed in supine position general anesthesia was initiated once patient was asleep and intubated her abdomen was prepped and draped in usual sterile fashion using ChloraPrep. An area just below the umbilicus was injected with quarter percent Marcaine with epinephrine and incision was made with 11 blade scalpel and a varies needle was placed within the abdomen a pneumoperitoneum was achieved once this complete a 11 mm port was placed. At this point a 5 mm camera was placed within the abdomen and the abdomen was inspected no other at maladies were noted. Three 5 mm ports were placed under direct visualization one in the epigastrium and 2 in the right upper quadrant the dome of the gallbladder was grasped retracted cephalad the infundibulum of the gallbladder was grasped retracted laterally exposing the triangle adherent tissues the triangle are taken down with blunt dissection exposing the cystic duct and cystic artery. Both were doubly clipped and transected the gallbladder was taken off the liver with hook electrocautery placed within an Endo Catch bag and removed from the umbilicus. The right upper quadrant was irrigated and suctioned dry hemostasis deemed to be appropriate and the pneumoperitoneum was reduced all ports removed the fascial defect at the umbilicus closed [id number] 0 Vicryl suture and the skin was reapproximated all port sites 4 septic Monocryl. Patient was awakened and extubated in the operating room and taken to recovery in stable condition all sponge instrument and needle counts listed as correct. Estimated blood loss 20 mL NEREIDA WILEY MD Feb 04, 2017 08:34
--- NOTE | 2017-02-04 08:35 | DISCH ---
DISCHARGE INSTRUCTIONS Condition on Discharge Condition on Discharge: Stable Activity After Discharge Activity Instructions for Disc: Activity as tolerated Other activity instructions: No lifting>20lbs for 2 weeks Diet after Discharge Diet after Discharge: Low Fat Wound Incision Care Other wound/incision instructi: May shower in 24 hours Contacting the after DC Call your doctor for: If your condition worsens Follow-Up Follow up with: Dr Wiley in 2 weeks NEREIDA WILEY MD Feb 04, 2017 08:35
[2017-02-04] MEDS ORDERED: HYDR-971 PO (09:05)
[2017-02-04] MEDS: fentaNYL PF VIAL 100 MCG/2 ML VIAL IV PRN ×4 (09:06→09:51)
[2017-02-04] MEDS ORDERED: HYDROcodone/APAP 5/325MG 1 TAB TABLET ONE (09:55)
[2017-02-04] MEDS ORDERED: HYDROcodone/APAP 5/325MG 1 TAB TABLET PO ONE (10:00)
[2017-02-04 10:49] VITALS: BP 113/59
--- NOTE | 2017-02-05 15:59 | PATHOLOGY ---
PATHOLOGY REPORT * * * * * * * * FINAL DIAGNOSIS: Gallbladder, laparoscopic cholecystectomy: - Chronic cholecystitis. - Small benign perigallbladder lymph node. COMMENT: There are no calculi identified within the gallbladder lumen or specimen container. There is no evidence of malignancy. (JPM:mml; 02/05/2017) REPORT ELECTRONICALLY SIGNED BY: Michael Wesley M.D. DATE/TIME: 02/05/2017 15:58 * * * * * * * * GROSS PATHOLOGY: Received in formalin labeled "Erica Schroeder, gallbladder," is a 6.7 x 3.3 x 1.8 cm, intact gallbladder with yellow green bile stained serosal surfaces. Opening the gallbladder reveals dark yellow green, velvety mucosa and an average wall thickness of 0.3 cm. Calculi are not present and no masses are noted grossly. Video Network Engineer sections from the body and fundus are submitted along with the proximal margin in cassette A1. (J{M; 02/04/17) INITIAL CPT CODE(S): A; 77910 Professional services performed [place] [address] Technical services performed by [employer] at [address] [place] [address]. SPECIMEN(S) RECEIVED: A.Gallbladder and its contents CLINICAL HISTORY: Biliary dyskinesia PATIENT: ERICA SCHROEDER /AGE: 9 1960 (Age: 56) PATIENT #: [id number] ALT CASE #: SPECIMEN COLLECTION DATE: 02/04/2017 SPECIMEN RECEIVED DATE: 02/04/2017 [facility] - [id number] [place] [address] - PHONE: [phone] * * * END OF REPORT * * *
== END 2017-02-04 11:05 | disposition home or self-care (01) ==
LOC: SURG 06:21
PROVIDERS: ATTEND Surgery
DX: K82.8 Other specified diseases of gallbladder (principal); E78.00 Pure hypercholesterolemia, unspecified; J45.909 Unspecified asthma, uncomplicated; E66.9 Obesity, unspecified; Z68.43 Body mass index [BMI] 50.0-59.9, adult; K21.9 Gastro-esophageal reflux disease without esophagitis; M19.90 Unspecified osteoarthritis, unspecified site; Z96.653 Presence of artificial knee joint, bilateral; Z87.39 Personal history of other diseases of the musculoskeletal system and connective tissue; Z72.89 Other problems related to lifestyle; Z88.6 Allergy status to analgesic agent; Z88.3 Allergy status to other anti-infective agents; Z88.8 Allergy status to other drugs, medicaments and biological substances
CPT/HCPCS: 47562; 88304; J0690; J1100; J2001; J2250; J2405; J2704; J2710; J3010; J3490; J7030; Q9967

== ENCOUNTER → 2017-03-22 | Day surgery (SDC) | payer BC ==
[~2017-03-22] MED LIST changes: +AMLO2.5T PO; +HYDR-971 PO; +HYDROmorphone 2 MG/ML VIAL IV PRN; +IV RINGERS,LACTATED 1000ML 1,000 ML IV SCH; +LIDOCAINE 1% 1 ML SYRINGE. ID PRN; +LIDOCAINE 2% PF Vial for OR 5 ML VIAL. ONE; +MOME13HF IH; +MORPHINE SULFATE 2 MG/ML DISP.SYRIN. IV PRN; +ONDANSETRON PF 4 MG/2 ML VIAL. IV PRN; +PROAIR HFA8.5 GM INH; +PROCHLORPERAZINE 10 MG/2 ML VIAL. IV PRN; +PROPOFOL 20 ML IV ONE; +fentaNYL PF VIAL 100 MCG/2 ML VIAL IV PRN
[2017-03-22 12:53] VITALS: BP 151/85
--- NOTE | 2017-03-25 17:26 | PATHOLOGY ---
PATHOLOGY REPORT * * * * * * * * FINAL DIAGNOSIS: Gastric biopsy, antrum: - Chronic gastritis, mild. COMMENT: Sections of the gastric biopsy reveal gastric antral mucosa showing congestion and mild chronic inflammation. An immunoperoxidase stain for Helicobacter is obtained. No Helicobacter organisms are identified. There is no evidence of malignancy. (JPM:mgr; 03/25/2017) Special Stain Performed: Immunoperoxidase stain for Helicobacter (A1) REPORT ELECTRONICALLY SIGNED BY: Michael Wesley M.D. DATE/TIME: 03/25/2017 17:26 * * * * * * * * GROSS PATHOLOGY: Received in formalin labeled "Erica Schroeder, antrum biopsy, r/o H. Pylori," is a segment of [place]cala soft tissue measuring 0.3 cm in maximum dimension. The specimen is submitted entirely in cassette A1. An immunoperoxidase stain to rule out Helicobacter Pylori will be obtained. ([facility]; 03/22/17) INITIAL CPT CODE(S): A; 35817, 09291 Professional services performed [place] [address] Technical services performed by [facility] at [address] [place] [address]. SPECIMEN(S) RECEIVED: A.Antrum biopsy, r/o H. Pylori CLINICAL HISTORY: Reflux, colon screening PATIENT: ERICA SCHROEDER /AGE: 9 1960 (Age: 56) PATIENT #: [id number] ALT CASE #: SPECIMEN COLLECTION DATE: 03/22/2017 SPECIMEN RECEIVED DATE: 03/22/2017 [facility] - [address] [place] [address] - PHONE: [phone] * * * END OF REPORT * * *
== END | disposition home or self-care (01) ==
LOC: ENDOS 11:26
PROVIDERS: ATTEND Surgery
DX: Z12.11 Encounter for screening for malignant neoplasm of colon (principal); K57.30 Diverticulosis of large intestine without perforation or abscess without bleeding; K29.50 Unspecified chronic gastritis without bleeding; K26.9 Duodenal ulcer, unspecified as acute or chronic, without hemorrhage or perforation; E78.00 Pure hypercholesterolemia, unspecified; J45.909 Unspecified asthma, uncomplicated; K21.9 Gastro-esophageal reflux disease without esophagitis; E66.9 Obesity, unspecified; Z68.43 Body mass index [BMI] 50.0-59.9, adult; Z90.49 Acquired absence of other specified parts of digestive tract; Z87.39 Personal history of other diseases of the musculoskeletal system and connective tissue; Z96.653 Presence of artificial knee joint, bilateral; Z72.89 Other problems related to lifestyle; Z88.6 Allergy status to analgesic agent; Z88.1 Allergy status to other antibiotic agents
CPT/HCPCS: 43239; 45378; 88305; 88342; J2704; J2001

== ENCOUNTER → 2017-03-27 | Outpatient (CLI) | payer BC ==
[2017-03-22 12:53] VITALS: BP 151/85
[~2017-03-27] MED LIST changes: -HYDROmorphone 2 MG/ML VIAL IV PRN; +IOHEXOL 240 MG/ML 50ML VIAL. ONE; +IOHEXOL 240 MG/ML 50ML VIAL. PO ONE; +IOHEXOL 300 MG/ML 75 ML VIAL IV ONE; +IOHEXOL 300 MG/ML 75 ML VIAL ONE; -IV RINGERS,LACTATED 1000ML 1,000 ML IV SCH; -LIDOCAINE 1% 1 ML SYRINGE. ID PRN; -LIDOCAINE 2% PF Vial for OR 5 ML VIAL. ONE; -MORPHINE SULFATE 2 MG/ML DISP.SYRIN. IV PRN; -ONDANSETRON PF 4 MG/2 ML VIAL. IV PRN; -PROCHLORPERAZINE 10 MG/2 ML VIAL. IV PRN; -PROPOFOL 20 ML IV ONE; -fentaNYL PF VIAL 100 MCG/2 ML VIAL IV PRN
--- NOTE | 2017-03-28 08:44 | RAD ---
CT of the abdomen and pelvis with contrast, 03/27/2017: History: Left upper quadrant pain Multidetector CT imaging was performed prior to and following an IV bolus injection of iodinated contrast material. The gallbladder is surgically absent. No hepatic abnormality is seen. The pancreas is unremarkable. The spleen is of normal size. No renal or adrenal abnormality is detected. The abdominal aorta is unremarkable. No abdominal or iliac adenopathy is seen. The uterus is surgically absent. The bowel loops are not dilated. No free air or significant free fluid is evident in the abdomen or pelvis. There are mild scattered degenerative changes in the spine. IMPRESSION: No acute abnormality is identified in the abdomen or pelvis. PQRS Compliance Statement: One or more of the following individualized dose reduction techniques were utilized for this examination: 1. Automated exposure control 2. Adjustment of the mA and/or kV according to patient size 3. Use of iterative reconstruction technique
== END | disposition home or self-care (01) ==
LOC: CT 17:00
PROVIDERS: ATTEND Physician Assistant Surgical
DX: R10.12 Left upper quadrant pain (principal); J45.909 Unspecified asthma, uncomplicated; Z90.49 Acquired absence of other specified parts of digestive tract
CPT/HCPCS: 74177; Q9966; Q9967

== ENCOUNTER → 2017-05-23 | Outpatient (CLI) | payer BC ==
[2017-03-22 12:53] VITALS: BP 151/85
[~2017-05-23] MED LIST changes: -IOHEXOL 240 MG/ML 50ML VIAL. ONE; -IOHEXOL 240 MG/ML 50ML VIAL. PO ONE; -IOHEXOL 300 MG/ML 75 ML VIAL IV ONE; -IOHEXOL 300 MG/ML 75 ML VIAL ONE
--- NOTE | 2017-05-23 13:50 | CARD ---
APPROVED REPORT EXAM: Two-dimensional and M-mode echocardiogram with Doppler and color Doppler. Other Information Quality : Average Rhythm : NSR INDICATION Abnormal chest x-ray 2D DIMENSIONS RVDd3.0 (2.9-3.5cm)Left Atrium(2D)3.4 (1.6-4.0cm) IVSd1.1 (0.7-1.1cm)Aortic Root(2D)2.8 (2.0-3.7cm) LVDd4.7 (3.9-5.9cm)LVOT Diameter2.0 (1.8-2.4cm) PWd1.0 (0.7-1.1cm)LVDs3.3 (2.5-4.0cm) FS (%) 29.5 %SV56.5 ml LVEF(%)56.5 (>50%) Aortic Valve AoV Peak Alvaro.113.1cm/sAoV VTI22.8cm AO Peak GR.5.1mmHgLVOT Peak Alvaro.84.1cm/s LVOT VTI 18.09cmAO Mean GR.3mmHg ASHLEIGH (VMAX)2.82dq5RMX (VTI)2.51cm2 Mitral Valve MV E Jyvpuudn08.2cm/sMV DECEL TNTO900qq MV A Lcszkwja46.1cm/sMV E Mean Gr.1mmHg MV RYF38ctG/A Ratio0.8 MV A Vdtbocnq040fpSIQ (PHT)2.73cm2 TDI E/Lateral E'5.6E/Medial E'9.5 Pulmonary Valve PV Peak Hjgsoyyh75.4cm/sPV Peak Grad.3mmHg RVOT VTI16.4cm Tricuspid Valve TR P. Hpjttitl489bb/sRAP AOHNJLIZ8lvCk TR Peak Gr.33nvJoIUPA96ebJr LEFT VENTRICLE The left ventricle is normal size. There is normal left ventricular wall thickness. Left ventricle sy stolic function is normal. The Ejection Fraction is 55-60%. There is normal LV segmental wall motion. The left ventricular diastolic function and filling is normal for age. There is no ventricular septa l defect visualized. RIGHT VENTRICLE The right ventricle is normal size. The right ventricular systolic function is normal. ATRIA The left atrium size is normal. The right atrium size is normal. The interatrial septum is intact wit h no evidence for an atrial septal defect or patent foramen ovale as noted on 2-D or Doppler imaging. AORTIC VALVE The aortic valve is normal in structure and function. The aortic valve is trileaflet. Doppler and Col or Flow revealed no significant aortic regurgitation. There is no significant aortic valvular stenosi s. MITRAL VALVE The mitral valve is normal in structure and function. There is no mitral valve stenosis. Doppler and Color Flow revealed trace mitral regurgitation. TRICUSPID VALVE The tricuspid valve is normal in structure and function. Doppler and Color Flow revealed trace tricus pid regurgitation. The PA pressure was estimated at 19 mmHg. There is no tricuspid valve stenosis. PULMONIC VALVE The pulmonic valve is not well visualized. Doppler and Color Flow revealed no pulmonic valvular regur gitation. There is no pulmonic valvular stenosis. GREAT VESSELS The aortic root is normal in size. Normal pulmonary venous flow (Doppler). The IVC is normal in size and collapses >50% with inspiration. PERICARDIAL EFFUSION There is no evidence of significant pericardial effusion. Critical Notification Critical Value: No <Conclusion> Left ventricle systolic function is normal. The Ejection Fraction is 55-60%. There is normal LV segmental wall motion.
== END | disposition home or self-care (01) ==
LOC: ECHO 12:50
PROVIDERS: ATTEND Nurse Practitioner Occupational Health
DX: R91.8 Other nonspecific abnormal finding of lung field (principal); R93.8 Abnormal findings on diagnostic imaging of other specified body structures
CPT/HCPCS: 93306

== ENCOUNTER → 2018-01-03 | Outpatient (CLI) | payer BC | END | disposition home or self-care (01) | LOC: KCIC DEXA 15:02 | DX: Z13.820 Encounter for screening for osteoporosis (principal); I10 Essential (primary) hypertension; E78.5 Hyperlipidemia, unspecified; E78.00 Pure hypercholesterolemia, unspecified; K21.9 Gastro-esophageal reflux disease without esophagitis; E03.9 Hypothyroidism, unspecified; J45.909 Unspecified asthma, uncomplicated | CPT/HCPCS: 77080 ==

== ENCOUNTER → 2018-09-24 | Outpatient (CLI) | payer BC ==
[2017-03-22 12:53] VITALS: BP 151/85
[~2018-09-24] MED LIST changes: +ALBU2.5V8 INH; -AMLO2.5T PO; +AMLO2.5T5 PO; +HYDR-3164 PO; -HYDR-971 PO; -PROAIR HFA8.5 GM INH
--- NOTE | 2018-09-24 15:39 | KCIC ---
US SOFT TISSUE HEAD AND NECK CLINICAL INDICATION: Dysphagia. Hypothyroidism. PROCEDURE: Transverse and longitudinal grayscale and color Doppler images of the thyroid were obtained. COMPARISON: None FINDINGS: Right: The right thyroid lobe measures 4.5 x 1.7 x 1.2 cm. 0.4 x 0.4 x 0.4 cm hypoechoic nodule is seen with irregular margins. Isthmus: 3 mm in thickness and is within normal limits. Left: The left thyroid lobe measures 4.6 x 1.6 x 1.7 cm. Well-circumscribed hypoechoic solid nodule is seen in the inferior thyroid lobe measuring 1.1 x 0.9 x 1.1 cm with peripheral vascularity and no internal calcifications. IMPRESSION: Bilateral thyroid nodules as described above. The thyroid nodule in the left side is moderately suspicious. According to ACR recommendation for a moderately suspicious nodule FNA if >=1.5 cm; Follow if >=1 cm. Electronically signed by: Rmaón Man DO (09/24/2018 3:36 PM) [facility]
== END | disposition home or self-care (01) ==
LOC: KCIC US 14:04
PROVIDERS: ATTEND Family Medicine
DX: E04.2 Nontoxic multinodular goiter (principal); E03.9 Hypothyroidism, unspecified
CPT/HCPCS: 76536